=== PATIENT | female | born 1935 | race Caucasian/White ===

== ENCOUNTER → 2016-08-26 | Outpatient (REF) | payer MEDICARE ==
[2016-08-26 11:31] LABS: ALBUMIN 3.5 GM/DL (3.2-5.2); ALBUMIN/GLOBULIN RATIO 0.95 (1.00-1.93); BILIRUBIN,TOTAL 0.5 MG/DL (0.2-1.0); CALCIUM LEVEL 9.2 MG/DL (8.8-10.2); CREATININE FOR GFR 1.11 MG/DL (0.55-1.02); GLOMERULAR FILTRATION RATE 50.2 (>32); POTASSIUM SERUM 4.3 MEQ/L (3.5-5.1); TOTAL PROTEIN 7.2 GM/DL (6.4-8.2)
== END ==
LOC: M SFHCPLAZ 08:19
PROVIDERS: ATTEND Internal Medicine
DX: E11.9 Type 2 diabetes mellitus without complications (principal); E03.9 Hypothyroidism, unspecified

== ENCOUNTER → 2016-09-02 | Outpatient (CLI) | payer MEDICARE ==
[~2016-09-02] MED LIST: ISOVUE-370 76% 100ML VIAL (Q9967) As Ordered ONE
--- NOTE | 2016-09-02 09:45 | REP ---
Clinical: Pleuritic chest pain. Technique: Axial contrast enhanced images from the thoracic inlet to the upper abdomen with multiplanar re-formations using PE protocol. Findings: Satisfactory enhancement of the pulmonary vasculature is achieved and no filling defects are identified to suggest pulmonary embolus. The heart appears to be upper limits of normal. Mild atherosclerotic changes to the thoracic aorta and coronary arteries noted. Trace pericardial fluid is nonspecific. The bilateral lung krause demonstrate chronic interstitial changes with minimal basilar atelectasis. No significant adenopathy. No pleural effusion/reaction or pneumothorax. Tracheobronchial tree is patent. Surrounding musculoskeletal structures demonstrate age-related degenerative changes. Impression: No evidence for pulmonary embolus. Trace basilar and lingular atelectasis along with underlying chronic changes. Signed by Felipe Isbell MD 09/02/2016 09:36 A
== END ==
LOC: M RAD 08:48
PROVIDERS: ATTEND Internal Medicine
DX: J98.11 Atelectasis (principal)
CPT/HCPCS: 71275; G0463; Q9967

== ENCOUNTER → 2017-02-09 | Outpatient (REF) | payer MEDICARE | LOC: M SFHCPLAZ 09:52 | PROVIDERS: ATTEND Internal Medicine | DX: E11.9 Type 2 diabetes mellitus without complications (principal) ==

== ENCOUNTER → 2017-09-30 | Outpatient (REF) | payer MEDICARE ==
[2017-09-30 12:22] LABS: ALBUMIN 3.4 GM/DL (3.2-5.2); ALKALINE PHOSPHATASE 91 U/L (45-117); ALT/SGPT 18 U/L (12-78); ANION GAP 8 MEQ/L (8-16); AST/SGOT 13 U/L (7-37); BILIRUBIN,TOTAL 0.6 MG/DL (0.2-1.0); BLOOD UREA NITROGEN 24 MG/DL (7-18); CALCIUM LEVEL 8.8 MG/DL (8.8-10.2); CARBON DIOXIDE LEVEL 28 MEQ/L (21-32); CHLORIDE LEVEL 108 MEQ/L (98-107); CHOLESTEROL LEVEL 175 MG/DL (<200); CHOLESTEROL RISK RATIO 2.868 (<5); CREATININE FOR GFR 1.26 MG/DL (0.55-1.30); GLOMERULAR FILTRATION RATE 43.3 (>32); GLUCOSE, FASTING 184 MG/DL (70-100); HDL CHOLESTEROL 61 MG/DL (>40); LDL CHOLESTEROL 91.8 MG/DL (<100); NON-HDL-C 114 MG/DL; POTASSIUM SERUM 4.1 MEQ/L (3.5-5.1); SODIUM LEVEL 144 MEQ/L (136-145); THYROID STIMULATING HORMONE 0.367 uIU/ML (0.358-3.740); TOTAL PROTEIN 6.8 GM/DL (6.4-8.2); TRIGLYCERIDES LEVEL 111 MG/DL (<150)
[2017-09-30 12:57] LABS: ESTIMATED AVERAGE GLUCOSE 160 MG/DL (60-110); HEMOGLOBIN A1c 7.2 %
== END ==
LOC: M SFHCPLAZ 07:42
DX: E11.9 Type 2 diabetes mellitus without complications (principal); E78.00 Pure hypercholesterolemia, unspecified; E03.9 Hypothyroidism, unspecified
CPT/HCPCS: 84443

== ENCOUNTER → 2018-04-07 | Outpatient (REF) | payer MEDICARE ==
[2018-04-07 11:17] LABS: HEMATOCRIT 38.4 % (36.0-47.0); HEMOGLOBIN 12.6 g/dl (12.0-15.5); MEAN CORPUSCULAR HEMOGLOBIN 30.4 pg (27.0-33.0); MEAN CORPUSCULAR HGB CONC 32.8 g/dl (32.0-36.5); MEAN CORPUSCULAR VOLUME 92.5 fl (80.0-96.0); PLATELET COUNT, AUTOMATED 226 10^3/uL (150-450); RED BLOOD COUNT 4.15 10^6/uL (4.00-5.40); WHITE BLOOD COUNT 9.1 10^3/uL (4.0-10.0)
[2018-04-07 11:19] LABS: ALBUMIN 3.6 GM/DL (3.2-5.2); BILIRUBIN,TOTAL 0.6 MG/DL (0.2-1.0); CALCIUM LEVEL 9.3 MG/DL (8.8-10.2); CREATININE FOR GFR 1.23 MG/DL (0.55-1.30); GLOMERULAR FILTRATION RATE 44.5 (>32); POTASSIUM SERUM 4.3 MEQ/L (3.5-5.1); TOTAL PROTEIN 7.2 GM/DL (6.4-8.2)
[2018-04-07 11:27] LABS: TOTAL 25(OH) VITAMIN D 39.3 NG/ML (30.0-100.0)
[2018-04-07 12:03] LABS: HEMOGLOBIN A1c 6.5 %
[2018-04-07 16:56] LABS: MALB URINE SIEMENS 20.3 MG/L; MAU/CREAT RATIO 12.8 MCG/MG (0.0-30.0)
== END ==
LOC: M SFHCPLAZ 07:47
PROVIDERS: ATTEND Internal Medicine
DX: E53.8 Deficiency of other specified B group vitamins (principal); E11.9 Type 2 diabetes mellitus without complications; M81.0 Age-related osteoporosis without current pathological fracture

== ENCOUNTER → 2018-04-19 | Outpatient (CLI) | payer MEDICARE ==
--- NOTE | 2018-04-19 09:39 | REPMRS ---
Patient History The patient states she has not had a clinical breast exam in over a year. Patient is postmenopausal. No known family history of cancer. Digital Woman Screen Mammo: April 19, 2018 - Exam #: [id number] Bilateral CC and MLO view(s) were taken. Technologist: Magdalene Conteh, Technologist Prior study comparison: March 18, 2015, digital woman screen mammo performed at [facility] to [facility]. August 30, 2012, digital woman screen mammo performed at [facility] to [facility]. November 27, 2010, bilateral bilat screen digital mammo performed at [facility] to [facility]. FINDINGS: There are scattered fibroglandular densities. There has been no change in the appearance of the mammogram from the prior studies. There is a mild amount of scattered fibroglandular density which is fairly symmetric. There is no interval development of dominant mass, architectural distortion, or clustered microcalcification suggestive of malignancy. 3-D tomosynthesis shows no additional findings. Assessment: BI-RADS/ACR category 1 mammogram. Negative. Recommendation Routine screening mammogram of both breasts in 1 year (for women over age 40). This patient's Lifetime Breast Cancer RIsk is estimated at 0.8 %. This mammogram was interpreted with the aid of an FDA-approved computer-aided dectection system. Electronically Signed By: Jonathan Dang MD 04/19/18 0940
--- NOTE | 2018-04-20 15:08 | DEXA ---
AP SPINE L1 - L4 1.003 -1.5 0.3 LT FEMUR TOTAL 0.763 -1.9 0.2 LT NECK 0.688 -2.5 -0.2 RT FEMUR TOTAL 0.656 -2.8 -0.6 RT NECK 0.612 -3.1 -0.8 TOTAL BODY TOTAL OTHER COMMENTS: There is low bone density of the spine. There is osteoporosis of the hips. The density of the spine has increased 17.0% since the initial exam on 09/30/2001. The spine density is 0.0% since the most recent exam on 03/18/2015. The density of the left hip has decreased 19.5% since the initial exam on 09/30/2001. The density of the left hip has decreased 4.4% since the most recent exam on 03/18/2015. The density of the right hip has decreased 24.3% since the initial exam on 09/30/2001. The density of the right hip has decreased 11.7% since the most recent exam on 03/18/2015. FOLLOW-UP: Recommendation for the next bone density exam: 2 years. KIRIT
== END ==
LOC: M WHC 07:52
PROVIDERS: ATTEND Internal Medicine
DX: Z12.31 Encounter for screening mammogram for malignant neoplasm of breast (principal); M81.0 Age-related osteoporosis without current pathological fracture

== ENCOUNTER → 2018-06-01 | Outpatient (CLI) | payer MEDICARE ==
--- NOTE | 2018-06-14 10:29 | SLEEPHOME ---
DATE OF STUDY: 06/01/2018 ORDERED BY: Dr. Horan Diagnostic home sleep testing was performed due to concern for the obstructive sleep apnea syndrome in this patient with a history excessive daytime somnolence. For testing a nocturnal T3 respiratory monitoring device was used. Continuous record was made of pulse, oxygen saturation, airflow, chest and abdominal strain, and body position. 10 hours and 59 minutes of data were reviewed. There were 6 hours and 53 minutes marked as time in bed. During the interval marked time in bed, there were only 24 respiratory events identified of 10 seconds in duration or greater for a respiratory event index of 3.5. The events that were seen were more frequent in the supine posture. Baseline pulse rate was 61 beats per minute, pulse rate ranged from 53-86. Baseline saturation was 93.8%. Lowest oxygen saturation reliably recorded was 90%. Testing was performed in both the supine and nonsupine positions. IMPRESSION: Borderline diagnostic home sleep test with respiratory patterning. RECOMMENDATION: Sleep position retraining for avoidance of the supine posture may be sufficient to address the patient's issues. If symptoms persist, referral for formal evaluation and in laboratory nocturnal polysomnography would be a more sensitive test to identify mild obstructive sleep apnea syndrome.
== END ==
LOC: M SLEEP HO 09:51
PROVIDERS: ATTEND Internal Medicine
DX: R40.0 Somnolence (principal); Z53.8 Procedure and treatment not carried out for other reasons

== ENCOUNTER → 2018-10-17 | Outpatient (REF) | payer MEDICARE ==
[2018-10-17 10:24] LABS: ALBUMIN 3.5 GM/DL (3.2-5.2); BILIRUBIN,TOTAL 0.5 MG/DL (0.2-1.0); CALCIUM LEVEL 8.9 MG/DL (8.8-10.2); CHOLESTEROL RISK RATIO 2.919 (<5); CREATININE FOR GFR 1.24 MG/DL (0.55-1.30); POTASSIUM SERUM 4.4 MEQ/L (3.5-5.1); THYROID STIMULATING HORMONE 0.348 uIU/ML (0.358-3.740); TOTAL PROTEIN 7.4 GM/DL (6.4-8.2)
[2018-10-17 10:34] LABS: HEMOGLOBIN A1c 7.1 %
== END ==
LOC: M SFHCPLAZ 07:54
PROVIDERS: ATTEND Internal Medicine
DX: E11.9 Type 2 diabetes mellitus without complications (principal); E78.00 Pure hypercholesterolemia, unspecified; E03.9 Hypothyroidism, unspecified

== ENCOUNTER → 2019-04-18 | Outpatient (CLI) | payer MEDICARE ==
[2019-04-18 10:17] LABS: HEMATOCRIT 39.9 % (36.0-47.0); HEMOGLOBIN 12.8 g/dl (12.0-15.5); MEAN CORPUSCULAR HEMOGLOBIN 30.3 pg (27.0-33.0); MEAN CORPUSCULAR HGB CONC 32.1 g/dl (32.0-36.5); MEAN CORPUSCULAR VOLUME 94.5 fl (80.0-96.0); PLATELET COUNT, AUTOMATED 191 10^3/uL (150-450); RED BLOOD COUNT 4.22 10^6/uL (4.00-5.40); WHITE BLOOD COUNT 8.2 10^3/uL (4.0-10.0)
[2019-04-18 11:39] LABS: ALBUMIN 3.5 GM/DL (3.2-5.2); BILIRUBIN,TOTAL 0.7 MG/DL (0.2-1.0); CALCIUM LEVEL 9.7 MG/DL (8.8-10.2); CREATININE FOR GFR 1.31 MG/DL (0.55-1.30); GLOMERULAR FILTRATION RATE 41.3 (>32); POTASSIUM SERUM 4.3 MEQ/L (3.5-5.1); THYROID STIMULATING HORMONE 0.523 uIU/ML (0.358-3.740); TOTAL 25(OH) VITAMIN D 47.4 NG/ML (30.0-100.0); TOTAL PROTEIN 7.2 GM/DL (6.4-8.2)
[2019-04-18 14:37] LABS: HEMOGLOBIN A1c 6.8 %
== END ==
LOC: M PLALAB 08:04
PROVIDERS: ATTEND Internal Medicine
DX: E03.9 Hypothyroidism, unspecified (principal); E11.9 Type 2 diabetes mellitus without complications; E53.8 Deficiency of other specified B group vitamins; M81.0 Age-related osteoporosis without current pathological fracture

== ENCOUNTER → 2019-10-23 | Outpatient (REF) | payer MEDICARE ==
[2019-10-23 11:52] LABS: ALBUMIN 3.4 GM/DL (3.2-5.2); BILIRUBIN,TOTAL 0.5 MG/DL (0.2-1.0); CHOLESTEROL RISK RATIO 2.929 (<5); CREATININE FOR GFR 1.19 MG/DL (0.55-1.30); POTASSIUM SERUM 4.2 MEQ/L (3.5-5.1)
[2019-10-23 12:14] LABS: MALB URINE SIEMENS 12.5 MG/L; MAU/CREAT RATIO 9.3 MCG/MG (0.0-30.0)
[2019-10-23 16:12] LABS: HEMOGLOBIN A1c 7.6 %
== END ==
LOC: M PLALAB 08:07
PROVIDERS: ATTEND Internal Medicine
DX: E11.9 Type 2 diabetes mellitus without complications (principal); E78.00 Pure hypercholesterolemia, unspecified

== ENCOUNTER → 2020-04-29 | Outpatient (REF) | payer MEDICARE ==
[2020-04-29 10:44] LABS: HEMATOCRIT 39.4 % (36.0-47.0); HEMOGLOBIN 12.7 g/dl (12.0-15.5); MEAN CORPUSCULAR HEMOGLOBIN 30.2 pg (27.0-33.0); MEAN CORPUSCULAR HGB CONC 32.2 g/dl (32.0-36.5); MEAN CORPUSCULAR VOLUME 93.8 fl (80.0-96.0); PLATELET COUNT, AUTOMATED 204 10^3/uL (150-450); WHITE BLOOD COUNT 8.9 10^3/uL (4.0-10.0)
[2020-04-29 11:26] LABS: ALBUMIN 3.6 GM/DL (3.2-5.2); BILIRUBIN,TOTAL 0.8 MG/DL (0.2-1.0); CALCIUM LEVEL 9.5 MG/DL (8.8-10.2); CREATININE FOR GFR 1.43 MG/DL (0.55-1.30); GLOMERULAR FILTRATION RATE 37.2 (>32); POTASSIUM SERUM 4.2 MEQ/L (3.5-5.1); THYROID STIMULATING HORMONE 0.913 uIU/ML (0.358-3.740); TOTAL PROTEIN 7.3 GM/DL (6.4-8.2)
[2020-04-29 11:40] LABS: HEMOGLOBIN A1c 7.8 %
== END ==
LOC: M PLALAB 08:03
PROVIDERS: ATTEND Internal Medicine
DX: J30.9 Allergic rhinitis, unspecified (principal); E11.9 Type 2 diabetes mellitus without complications; E03.9 Hypothyroidism, unspecified

== ENCOUNTER → 2020-10-28 | Outpatient (CLI) | payer MEDICARE ==
[2020-10-28 11:10] LABS: HEMOGLOBIN A1c 7.5 %
[2020-10-28 11:19] LABS: ALBUMIN 3.6 GM/DL (3.2-5.2); BILIRUBIN,TOTAL 0.7 MG/DL (0.2-1.0); CHOLESTEROL RISK RATIO 2.966 (<5); CREATININE FOR GFR 1.29 MG/DL (0.55-1.30); GLOMERULAR FILTRATION RATE 41.8 (>32); POTASSIUM SERUM 4.3 MEQ/L (3.5-5.1); TOTAL PROTEIN 7.4 GM/DL (6.4-8.2)
== END ==
LOC: M PLALAB 08:42
PROVIDERS: ATTEND Internal Medicine
DX: E11.9 Type 2 diabetes mellitus without complications (principal); E78.00 Pure hypercholesterolemia, unspecified

== ENCOUNTER → 2021-04-24 | Outpatient (CLI) | payer MEDICARE ==
[2021-04-24 13:37] LABS: BASO # 0.1 10^3/uL (0.0-0.2); BASO % 1.2 % (0.0-1.0); EOS # 0.4 10^3/uL (0.0-0.5); EOS % 4.7 % (0.0-3.0); HEMATOCRIT 40.8 % (36.0-47.0); HEMOGLOBIN 13.3 g/dl (12.0-15.5); LYMPH # 1.3 10^3/uL (1.5-5.0); MEAN CORPUSCULAR HEMOGLOBIN 30.2 pg (27.0-33.0); MEAN CORPUSCULAR HGB CONC 32.6 g/dl (32.0-36.5); MEAN CORPUSCULAR VOLUME 92.7 fl (80.0-96.0); MONO # 0.7 10^3/uL (0.0-0.8); MONO % 7.5 % (2.0-8.0); NEUTROPHILS # 6.8 10^3/uL (1.5-8.5); NEUTROPHILS % 72.2 % (36.0-66.0); PLATELET COUNT, AUTOMATED 231 10^3/uL (150-450); WHITE BLOOD COUNT 9.4 10^3/uL (4.0-10.0)
[2021-04-24 14:10] LABS: HEMOGLOBIN A1c 7.8 %
[2021-04-24 14:17] LABS: ALBUMIN 3.7 GM/DL (3.2-5.2); BILIRUBIN,TOTAL 0.8 MG/DL (0.2-1.0); CHOLESTEROL RISK RATIO 3.226 (<5); CREATININE FOR GFR 1.4 MG/DL (0.55-1.30); THYROID STIMULATING HORMONE 1.22 uIU/ML (0.358-3.740); TOTAL PROTEIN 7.5 GM/DL (6.4-8.2)
[2021-04-24 14:18] LABS: FOLATE 14.5 NG/ML
== END ==
LOC: M PLALAB 08:45
PROVIDERS: ATTEND Internal Medicine
DX: E11.9 Type 2 diabetes mellitus without complications (principal); E78.00 Pure hypercholesterolemia, unspecified; E03.9 Hypothyroidism, unspecified; J45.909 Unspecified asthma, uncomplicated; R26.89 Other abnormalities of gait and mobility

== ENCOUNTER → 2022-06-15 | Outpatient (REF) | payer MEDICARE | LOC: M LAB REF 12:14 | PROVIDERS: ATTEND Internal Medicine | DX: G60.9 Hereditary and idiopathic neuropathy, unspecified (principal) ==

== ENCOUNTER → 2022-07-07 | Outpatient (CLI) | payer MEDICARE | LOC: M RAD 09:31 | PROVIDERS: ATTEND Internal Medicine | DX: R74.01 Elevation of levels of liver transaminase levels (principal) ==

== ENCOUNTER → 2023-06-18 | Outpatient (CLI) | payer MEDICARE | LOC: M WUC 10:45 | PROVIDERS: ATTEND Internal Medicine | DX: M16.11 Unilateral primary osteoarthritis, right hip (principal); D64.9 Anemia, unspecified; Z91.81 History of falling ==

== ENCOUNTER → 2023-06-18 | Outpatient (REF) | payer MEDICARE | LOC: M LAB REF 11:58 | PROVIDERS: ATTEND Internal Medicine | DX: D64.9 Anemia, unspecified (principal) ==

== ENCOUNTER → 2023-12-21 | Outpatient (REF) | payer MEDICARE ==
[2023-12-21 17:30] LABS: PERCENT SATURATION 30.1 % (13.2-45.0)
== END ==
LOC: M LAB REF 16:19
PROVIDERS: ATTEND Internal Medicine
DX: G25.81 Restless legs syndrome (principal)

== ENCOUNTER → 2024-03-21 | Outpatient (REF) | payer MEDICARE ==
[2024-03-21 13:05] LABS: PERCENT SATURATION 27.4 % (13.2-45.0)
[2024-03-21 13:07] LABS: FERRITIN 43.4 NG/ML (7.3-270.7)
== END ==
LOC: M LAB REF 12:12
PROVIDERS: ATTEND Internal Medicine
DX: D64.9 Anemia, unspecified (principal)

== ENCOUNTER 2024-08-27 11:09 | Inpatient (IN) | payer MEDICARE ==
[~2024-08-27] VITALS: Ht 165.1 cm; Wt 81.8 kg
[2024-08-27] MEDS ORDERED: GABA-1171 PO (11:27)
[2024-08-27] MEDS ORDERED: METF500T13 PO (11:27)
[2024-08-27] MEDS ORDERED: ROSU10TA61 (11:27)
[2024-08-27] MEDS ORDERED: LEVO88TA3 PO (11:27)
[2024-08-27] MEDS ORDERED: ACET650T15 PO (11:27)
[2024-08-27 12:04] LABS: BASO # 0.1 10^3/uL (0.0-0.2); BASO % 0.8 % (0.0-1.0); EOS # 0.4 10^3/uL (0.0-0.5); EOS % 2.9 % (0.0-3.0); HEMATOCRIT 33.8 % (36.0-47.0); HEMOGLOBIN 11.3 g/dl (12.0-15.5); LYMPH # 1.1 10^3/uL (1.5-5.0); LYMPH % 7.9 % (24.0-44.0); MEAN CORPUSCULAR HEMOGLOBIN 31.1 pg (27.0-33.0); MEAN CORPUSCULAR HGB CONC 33.4 g/dl (32.0-36.5); MEAN CORPUSCULAR VOLUME 93.1 fl (80.0-96.0); NEUTROPHILS # 11.3 10^3/uL (1.5-8.5); NEUTROPHILS % 80.8 % (36.0-66.0); RED BLOOD COUNT 3.63 10^6/uL (4.00-5.40)
[2024-08-27] MEDS: MORPHINE 2 MG/ML 1ML VIAL IV PRN (12:50)
[2024-08-27 13:08] LABS: INR 0.96; PARTIAL THROMBOPLASTIN TIME 28.4 SECONDS (24.8-34.2)
[2024-08-27 13:21] LABS: CALCIUM LEVEL 9.4 MG/DL (8.3-10.6); CREATININE FOR GFR 1.53 MG/DL (0.55-1.30); GLOMERULAR FILTRATION RATE 32.3 (>32); POTASSIUM SERUM 5.6 MMOL/L (3.5-5.1)
[2024-08-27] MEDS ORDERED: MOM 30ML SUSPENSION UDC PO PRN (14:25)
[2024-08-27] MEDS ORDERED: GLUCAGON INJ 1MG VIAL SC PRN (14:25)
[2024-08-27] MEDS ORDERED: GLUCOSE 4 GM CHEW PO PRN (14:25)
[2024-08-27] MEDS ORDERED: DEXTROSE 50% 50ML SYRINGE IV PRN (14:25)
[2024-08-27] MEDS ORDERED: MORPHINE 2 MG/ML 1ML VIAL IV PRN (14:25)
[2024-08-27] MEDS ORDERED: CALC500C16 PO (14:29)
[2024-08-27] MEDS ORDERED: B-12100021 PO (14:29)
[2024-08-27] MEDS ORDERED: HOME MED LIST COMPLETE! XX SCH (14:30)
[2024-08-27] MEDS ORDERED: ONDANSETRON 4MG ORAL DISINTEGRATING TAB SL PRN (14:30)
[2024-08-27 16:00] VITALS: BP 169/82; TEMP 97.3; O2SAT 97
[2024-08-27] MEDS: ACETAMINOPHEN 500 MG TAB PO SCH (17:52)
[2024-08-27] MEDS: INSULIN LISPRO (NovoLOG) PER UNIT SC SCH ×2 (17:53→21:00)
[2024-08-27 19:49] VITALS: BP 152/72; TEMP 97.2; O2SAT 95
[2024-08-27] MEDS: DOCUSATE SODIUM 100MG CAPSULE PO SCH (21:12)
[2024-08-28] VITALS (7 sets, daily range): BP systolic 128–153; BP diastolic 62–83; TEMP 96.6–97.5; O2SAT 93–98
[2024-08-28 05:55] LABS: HEMATOCRIT 31.7 % (36.0-47.0); HEMOGLOBIN 10.4 g/dl (12.0-15.5); MEAN CORPUSCULAR HEMOGLOBIN 30.6 pg (27.0-33.0); MEAN CORPUSCULAR HGB CONC 32.8 g/dl (32.0-36.5); MEAN CORPUSCULAR VOLUME 93.2 fl (80.0-96.0); PLATELET COUNT, AUTOMATED 319 10^3/uL (150-450); WHITE BLOOD COUNT 9.8 10^3/uL (4.0-10.0)
[2024-08-28 06:25] LABS: CREATININE FOR GFR 1.43 MG/DL (0.55-1.30); GLOMERULAR FILTRATION RATE 35.1 (>32); POTASSIUM SERUM 5.4 MMOL/L (3.5-5.1)
[2024-08-28] MEDS: PATIROMER SORBITEX CALCIUM 8.4GM POWDER PACKET PO ONE (07:48)
[2024-08-28] MEDS ORDERED: propofoL 200 MG/20 ML VIAL As Ordered ONE (09:10)
[2024-08-28] MEDS ORDERED: fentaNYL 100 MCG/2 ML INJECTION As Ordered ONE (09:10)
[2024-08-28] MEDS ORDERED: LIDOCAINE 2% 100MG/5ML SDV (FOR ANES.) As Ordered ONE (09:10)
[2024-08-28] MEDS ORDERED: ONDANSETRON 4MG 2ML VIAL As Ordered ONE (09:29)
[2024-08-28] MEDS: ceFAZolin SODIUM 2 GM VIAL As Ordered ONE (10:02)
[2024-08-28] MEDS ORDERED: ePHEDrine SULFATE 25 MG/5 ML(5MG/ML) SYRINGE As Ordered ONE (10:05)
[2024-08-28] MEDS: TRANEXAMIC ACID 100 MG/ML 10ML VIAL As Ordered ONE (10:09)
[2024-08-28] MEDS ORDERED: PHENYLephrine 500MCG 5ML (100MCG/ML) SYRINGE As Ordered ONE (10:21)
[2024-08-28] MEDS: VANCOMYCIN 500MG/10ML VIAL As Ordered ONE (10:56)
[2024-08-28] MEDS: BUPivacaine LIPOSOME/PF 266MG 20ML VIAL (13.3MG/ML)(EXPAREL) As Ordered ONE (11:07)
[2024-08-28] MEDS ORDERED: fentaNYL 100 MCG/2 ML INJECTION IV PRN (11:40)
[2024-08-28] MEDS ORDERED: HYDROMORPHONE HCL 0.5 MG/ 0.5 ML SYRINGE IV PRN (11:40)
[2024-08-28] MEDS ORDERED: oxyCODONE 5MG TAB PO PRN (11:40)
[2024-08-28] MEDS ORDERED: ONDANSETRON 4MG 2ML VIAL IV PRN (11:40)
[2024-08-28] MEDS ORDERED: ceFAZolin SODIUM 2 GM in DEXTROSE 5% (D5W) ADV/MINI-BAG 50 ML IV SCH ×2 (11:40→18:00)
[2024-08-28] MEDS: ASPIRIN 81MG ENTERIC TABLET PO SCH (13:33)
[2024-08-28] MEDS: ceFAZolin SOD 1 GM in DEXTROSE 5% (D5W) ADV/MINI-BAG 50 ML IV SCH (22:15)
[2024-08-29] VITALS: BP 102/55; TEMP 97.7; O2SAT 98
[2024-08-29 04:28] VITALS: BP 126/61; TEMP 97.5; O2SAT 93
[2024-08-29 06:11] LABS: HEMATOCRIT 28.1 % (36.0-47.0); HEMOGLOBIN 9.2 g/dl (12.0-15.5); MEAN CORPUSCULAR HEMOGLOBIN 30.2 pg (27.0-33.0); MEAN CORPUSCULAR HGB CONC 32.7 g/dl (32.0-36.5); MEAN CORPUSCULAR VOLUME 92.1 fl (80.0-96.0); PLATELET COUNT, AUTOMATED 291 10^3/uL (150-450); RED BLOOD COUNT 3.05 10^6/uL (4.00-5.40); WHITE BLOOD COUNT 17.1 10^3/uL (4.0-10.0)
[2024-08-29 06:23] LABS: INR 1.07; PROTHROMBIN TIME 14.2 SECONDS (12.5-14.5)
[2024-08-29 06:35] LABS: ALBUMIN 2.8 G/DL (3.2-5.2); BILIRUBIN,TOTAL 0.4 MG/DL (0.3-1.2); CALCIUM LEVEL 9.1 MG/DL (8.3-10.6); CREATININE FOR GFR 1.36 MG/DL (0.55-1.30); GLOMERULAR FILTRATION RATE 37.2 (>32); PHOSPHORUS LEVEL 3.8 MG/DL (2.4-5.1); TOTAL PROTEIN 5.9 G/DL (5.7-8.2)
[2024-08-29 08:00] VITALS: BP 122/59; TEMP 98.1; O2SAT 94
[2024-08-29 12:00] VITALS: BP 121/59; TEMP 97.7; O2SAT 94
[2024-08-29] MEDS: PREVNAR-20 VACCINE 0.5ML SYRINGE IM.IMMUN ONE (13:38)
[2024-08-29] MEDS: PATIROMER SORBITEX CALCIUM 8.4GM POWDER PACKET PO ONE (14:30)
[2024-08-29] MEDS: LEVOTHYROXINE 88MCG TABLET (0.088 MG) PO SCH (14:31)
[2024-08-29] MEDS: GABAPENTIN 100 MG CAP PO SCH (14:31)
[2024-08-29 16:00] VITALS: BP 131/62; TEMP 97.7; O2SAT 96
[2024-08-29 19:46] VITALS: BP 136/64; TEMP 97.5; O2SAT 96
[2024-08-29] MEDS: FLUTICASONE PROP 0.05% NASAL SPRAY 16 GM (FLONASE) NARES SCH (20:32)
[2024-08-30 00:05] VITALS: BP 134/66; TEMP 97.3; O2SAT 97
[2024-08-30 04:11] VITALS: BP 139/69; TEMP 97.5; O2SAT 95
[2024-08-30 06:19] LABS: HEMATOCRIT 27.2 % (36.0-47.0); HEMOGLOBIN 8.8 g/dl (12.0-15.5); MEAN CORPUSCULAR HGB CONC 32.4 g/dl (32.0-36.5); MEAN CORPUSCULAR VOLUME 92.8 fl (80.0-96.0); PLATELET COUNT, AUTOMATED 274 10^3/uL (150-450); RED BLOOD COUNT 2.93 10^6/uL (4.00-5.40); WHITE BLOOD COUNT 15.4 10^3/uL (4.0-10.0)
[2024-08-30 06:40] LABS: INR 1.03; PROTHROMBIN TIME 13.8 SECONDS (12.5-14.5)
[2024-08-30 06:51] LABS: ALBUMIN 2.7 G/DL (3.2-5.2); BILIRUBIN,TOTAL 0.4 MG/DL (0.3-1.2); CALCIUM LEVEL 9.2 MG/DL (8.3-10.6); CREATININE FOR GFR 1.38 MG/DL (0.55-1.30); GLOMERULAR FILTRATION RATE 36.6 (>32); PHOSPHORUS LEVEL 3.3 MG/DL (2.4-5.1)
[2024-08-30 08:00] VITALS: BP 137/67; TEMP 97.3
[2024-08-30] MEDS ORDERED: CEFDINIR 300 MG CAP PO SCH (09:00)
[2024-08-30] MEDS: CEFDINIR 300 MG CAP PO SCH (10:01)
[2024-08-30] MEDS: CALCIUM CARBONATE 500 MG CHEW U/D PO SCH (10:02)
[2024-08-30] MEDS: PATIROMER SORBITEX CALCIUM 8.4GM POWDER PACKET PO ONE (10:02)
[2024-08-30] MEDS: ACETAMINOPHEN 500 MG TAB PO SCH (16:22)
[2024-08-31 04:00] VITALS: BP 159/79; TEMP 97.3; O2SAT 95
[2024-08-31 06:33] LABS: ALBUMIN 2.7 G/DL (3.2-5.2); CALCIUM LEVEL 9.4 MG/DL (8.3-10.6); CREATININE FOR GFR 1.29 MG/DL (0.55-1.30); GLOMERULAR FILTRATION RATE 39.7 (>32); PHOSPHORUS LEVEL 3.9 MG/DL (2.4-5.1); POTASSIUM SERUM 4.6 MMOL/L (3.5-5.1)
[2024-08-31] MEDS ORDERED: CEFD300CAP PO (12:54)
[2024-08-31] MEDS ORDERED: ASPI81TAEC PO (12:54)
[2024-08-31] MEDS ORDERED: COLA100C5 PO (12:54)
[2024-08-31] MEDS ORDERED: OXYC1TAB23 PO (12:55)
== END 2024-08-31 15:10 | DRG 522 ==
LOC: M ED 11:09 → EDBD 11:09 → M ED INP 14:20 → M MS5PR 15:58
PROVIDERS: ADMIT Student in an Organized Health Care Education/Training Program; ATTEND Internal Medicine
PROC: 0SRS0JA Replacement of Left Hip Joint, Femoral Surface with Synthetic Substitute, Uncemented, Open Approach (ICD-10-PCS; principal; 2024-08-28 09:00)
DX: S72.002A Fracture of unspecified part of neck of left femur, initial encounter for closed fracture (principal); J45.909 Unspecified asthma, uncomplicated; E03.9 Hypothyroidism, unspecified; E11.42 Type 2 diabetes mellitus with diabetic polyneuropathy; E78.5 Hyperlipidemia, unspecified; M81.0 Age-related osteoporosis without current pathological fracture; M19.90 Unspecified osteoarthritis, unspecified site; E53.8 Deficiency of other specified B group vitamins; E11.22 Type 2 diabetes mellitus with diabetic chronic kidney disease; N18.30 Chronic kidney disease, stage 3 unspecified; E87.5 Hyperkalemia; D64.9 Anemia, unspecified; D72.829 Elevated white blood cell count, unspecified; W18.30XA Fall on same level, unspecified, initial encounter; Y92.010 Kitchen of single-family (private) house as the place of occurrence of the external cause; Z98.41 Cataract extraction status, right eye; Z98.42 Cataract extraction status, left eye; Z66 Do not resuscitate

== ENCOUNTER → 2024-10-18 | Outpatient (REF) ==
[~2024-10-18] MED LIST changes: +ACET650T15 PO; +ASPI81TAEC PO; +B-12100021 PO; +CALC500C16 PO; +CEFD300CAP PO; +COLA100C5 PO; +GABA-1171 PO; -ISOVUE-370 76% 100ML VIAL (Q9967) As Ordered ONE; +LEVO88TA3 PO; +METF500T13 PO; +OXYC1TAB23 PO; +ROSU10TA61
[2024-10-18 09:15] LABS: PLATELET COUNT, AUTOMATED 255 10^3/uL (150-450)
[2024-10-18 09:39] LABS: CALCIUM LEVEL 10.1 MG/DL (8.3-10.6); CARBON DIOXIDE LEVEL 24.0 MMOL/L (20-31); CHLORIDE LEVEL 106.0 MMOL/L (98-107); CREATININE FOR GFR 1.38 MG/DL (0.55-1.30); GLOMERULAR FILTRATION RATE 36.6 (>32); POTASSIUM SERUM 5.0 MMOL/L (3.5-5.1); SODIUM LEVEL 142.0 MMOL/L (136-145)
== END ==
PROVIDERS: ATTEND Physician Assistant
DX: E03.9 Hypothyroidism, unspecified (principal)

== ENCOUNTER → 2024-11-15 | Outpatient (REF) | payer MEDICARE ==
[~2024-11-15] MED LIST changes: +ACET-1515 PO; -ACET650T15 PO
[2024-11-15 10:12] LABS: PLATELET COUNT, AUTOMATED 227 10^3/uL (150-450)
[2024-11-15 10:40] LABS: CALCIUM LEVEL 9.7 MG/DL (8.3-10.6); CARBON DIOXIDE LEVEL 23.0 MMOL/L (20-31); CHLORIDE LEVEL 106.0 MMOL/L (98-107); CREATININE FOR GFR 1.5 MG/DL (0.55-1.30); GLOMERULAR FILTRATION RATE 33.1 (>32); POTASSIUM SERUM 4.5 MMOL/L (3.5-5.1); SODIUM LEVEL 140.0 MMOL/L (136-145)
== END ==
PROVIDERS: ATTEND Physician Assistant
DX: E03.9 Hypothyroidism, unspecified (principal)

== ENCOUNTER → 2024-11-29 | Outpatient (REF) | payer MEDICARE | PROVIDERS: ATTEND Physician Assistant | DX: E03.9 Hypothyroidism, unspecified (principal) ==

== ENCOUNTER → 2024-12-15 | Outpatient (REF) | payer MEDICARE | PROVIDERS: ATTEND Internal Medicine | DX: E11.9 Type 2 diabetes mellitus without complications (principal); Z53.8 Procedure and treatment not carried out for other reasons ==

== ENCOUNTER → 2024-12-20 | Outpatient (REF) | payer MEDICARE ==
[2024-12-20 12:06] LABS: PLATELET COUNT, AUTOMATED 208 10^3/uL (150-450)
[2024-12-20 12:31] LABS: CALCIUM LEVEL 9.3 MG/DL (8.3-10.6); CARBON DIOXIDE LEVEL 25.0 MMOL/L (20-31); CHLORIDE LEVEL 104.0 MMOL/L (98-107); CREATININE FOR GFR 1.47 MG/DL (0.55-1.30); GLOMERULAR FILTRATION RATE 33.9 (>32); POTASSIUM SERUM 4.9 MMOL/L (3.5-5.1); SODIUM LEVEL 140.0 MMOL/L (136-145)
== END ==
PROVIDERS: ATTEND Physician Assistant
DX: I10 Essential (primary) hypertension (principal)

== ENCOUNTER → 2025-01-04 | Outpatient (REF) | payer MEDICARE ==
[2025-01-04 15:09] LABS: IRON (FE) 47.0 UG/DL (50-170); PERCENT SATURATION 15.2 % (13.2-45.0)
[2025-01-04 15:16] LABS: VITAMIN B12 LEVEL 497.0 PG/ML (211-911)
== END ==
LOC: M LAB REF 13:08
PROVIDERS: ATTEND Internal Medicine
DX: D64.9 Anemia, unspecified (principal)

== ENCOUNTER → 2025-01-17 | Outpatient (REF) | PROVIDERS: ATTEND Internal Medicine | DX: E03.9 Hypothyroidism, unspecified (principal) ==

== ENCOUNTER → 2025-01-18 | Outpatient (CLI) | payer MEDICARE | LOC: M SOG 07:29 | PROVIDERS: ATTEND Orthopaedic Surgery | DX: S72.002D Fracture of unspecified part of neck of left femur, subsequent encounter for closed fracture with routine healing (principal) ==

== ENCOUNTER → 2025-02-12 | Outpatient (REF) | payer MEDICARE ==
[~2025-02-12] MED LIST changes: -ROSU10TA61; +ROSU10TA90
== END ==
PROVIDERS: ATTEND Internal Medicine
DX: E03.9 Hypothyroidism, unspecified (principal)